=== PATIENT | male | born 1930 | race Caucasian/White ===

== ENCOUNTER 2016-09-21 17:26 | Inpatient (IN) | payer OTHER ==
[~2016-09-21] VITALS: Ht 165.1 cm; Wt 80.1 kg
[~2016-09-21 17:26] MED LIST: ADVIN25050 INH; ALFU10TA2 PO; FENO130C2 PO; FRS/40 PO; GLPSR/5 PO; LABETALOL HCL; PERCOCET; PROVASTATIN SODIUM; PYRIDIUM; TIOTCAP INH; [UNRECOGNIZED DRUG - OTHER]
[2016-09-21 22:00] VITALS: BP 124/74; PULSE 72; TEMP 37; O2SAT 94
[2016-09-21 22:36] VITALS: Ht 165.1 cm; Wt 80.1 kg
[2016-09-21] MEDS ORDERED: ACETAMINOPHEN 325 MG TAB PO PRN (23:30)
[2016-09-21] MEDS ORDERED: MAGNESIUM HYDROXIDE SUSP 30 ML UDC PO PRN (23:30)
[2016-09-21] MEDS ORDERED: ALUMINUM/MAGNESIUM/SIMETH (MAALOX MAX) 30 ML UDC PO PRN (23:30)
[2016-09-21] MEDS ORDERED: ONDANSETRON INJ 2 MG/ML 2 ML VIAL IV PRN (23:30)
[2016-09-21 23:40] VITALS: BP 140/78; PULSE 71; TEMP 36.6; O2SAT 94
[2016-09-21] MEDS ORDERED: POLYETHYLENE (MIRALAX) 17 GM PACK PO PRN (23:45)
[2016-09-22] VITALS (10 sets, daily range): BP systolic 136–161; BP diastolic 70–87; PULSE 68–82; TEMP 36.7–36.8; O2SAT 94–97
[2016-09-22] MEDS ORDERED: LEVO75TA PO (00:08)
[2016-09-22] MEDS ORDERED: METO-157 PO (00:10)
[2016-09-22] MEDS ORDERED: FRS/40 PO (00:10)
[2016-09-22] MEDS ORDERED: SPRIN/30 INH (00:11)
[2016-09-22] MEDS ORDERED: CARV3.122 PO (00:13)
[2016-09-22] MEDS ORDERED: IPRASOL4 INH (00:13)
[2016-09-22] MEDS ORDERED: POTA10CA28 PO (00:14)
[2016-09-22] MEDS ORDERED: SIMV20TA5 PO (00:15)
[2016-09-22] MEDS ORDERED: AMIO200T4 PO (00:15)
[2016-09-22] MEDS ORDERED: SYMIN INH (00:16)
[2016-09-22] MEDS ORDERED: ASPI81TA28 PO (00:17)
[2016-09-22] MEDS ORDERED: NTRGSL/4 SL (00:18)
[2016-09-22] MEDS ORDERED: DUTA0.5C PO (00:19)
[2016-09-22] MEDS ORDERED: ALFU1TAB2 PO (00:19)
[2016-09-22] MEDS ORDERED: PSYL0.524 PO (00:21)
[2016-09-22] MEDS ORDERED: PANT40TA PO (00:23)
--- NOTE | 2016-09-22 00:52 | History and Physical ---
History & Physical Date & Time of Service: Sep 22, 2016 at 00:24 Chief Complaint: Gross Hematuria Primary Care Physician: No Doctor, Assigned History of Present Illness Source: patient 86-year-old male with past medical history of type 2 diabetes which is diet controlled, hypertension, CAD, COPD, chronic combined systolic and diastolic heart failure, hyperlipidemia, BCC of face, hypothyroidism, CKD stage III, incontinence of urine and chronic urinary retention presented to [facility] as a direct admit from [facility] with complaints of gross hematuria. He complains of gross hematuria which started about 2 days ago associated with dysuria. Denies any chills but had a low-grade temp last night. Denies any nausea, vomiting, abdominal pain, back pain. Past Medical/Surgical History type 2 diabetes which is diet controlled, hypertension, CAD, COPD, chronic combined systolic and diastolic heart failure, hyperlipidemia, BCC of face, hypothyroidism, CKD stage III, incontinence of urine and chronic urinary retention Social History Smoking Status: Former Smoker Allergies Coded Allergies: No Known Allergies (Verified Allergy, Unknown, 03/27/07) Home Medications Scheduled Alfuzosin Hcl (Alfuzosin Hcl Er), 1 TAB PO DAILY Amiodarone Hcl (Cordarone), 1 TAB PO DAILY Aspirin (Aspirin Ec), 81 MG PO DAILY Budesonide/Formoterol Fumarate (Symbicort 160-4.5 Mcg/Act), 2 PUFF INH BID Carvedilol (Coreg), 1 TAB PO BID Dutasteride (Avodart), 1 CAP PO DAILY Furosemide (Lasix), 40 MG PO DAILY Ipratropium-Albuterol (Duoneb), 1 TREATMENT INH Q4H Levothyroxine Sodium (Synthroid), 1 TAB PO DAILY Metoclopramide (Reglan), 5 MG PO AC Nitroglycerin (Nitrostat), 1 TAB SL UD Pantoprazole (Protonix), 40 MG PO DAILY Potassium Chloride (Micro-K Ext Rel), 10 MEQ PO DAILY Simvastatin (Zocor), 1 TAB PO HS Tiotropium [place] (Spiriva Handihaler), 1 CAP INH DAILY Scheduled PRN Psyllium (Metamucil), 1 DOSE PO DAILY PRN for Constipation Review of Systems Constitutional: No chills, No fever Eyes: No worsening of vision ENT: No hearing loss Respiratory: No cough, No shortness of breath Cardiovascular: No chest pain Abdomen: No nausea, No pain, No vomiting Musculoskeletal: No joint pain Genitourinary - Male: + dysuria, + hematuria, + urinary frequency, + urinary incontinence, + urinary retention Neurologic: No memory loss Psychiatric: No depression symptoms Endocrine: No fatigue Hematologic / Lymphatic: No abnormal bleeding/bruising Physical Exam Vital Signs Date Time Temp Pulse Resp B/P Pulse Ox O2 Delivery O2 Flow Rate FiO2 09/21/16 23:40 36.6 71 16 140/78 94 Room Air 09/21/16 22:15 Room Air 09/21/16 22:00 37.0 72 16 124/74 94 Room Air General Appearance: WD/WN, no apparent distress Head: normocephalic Eyes: normal inspection ENT: normal ENT inspection, hearing grossly normal Neck: supple Respiratory/Chest: chest non-tender, no respiratory distress, + wheezing Cardiovascular: regular rate, rhythm, no edema Abdomen/GI: normal bowel sounds, non tender, soft Neurologic/Psych: alert, oriented x 3 Skin: normal color Diagnostics Diagnostic Radiology CT abdomen and pelvis without IV contrast PERFORMED AT [facility]: Findings emphysema is noted involving both lungs. Cholelithiasis is present. The liver, spleen, pancreas, and the right adrenal gland, are suboptimally evaluated on these unenhanced images, but demonstrated no acute pathology. There is a probable left adrenal adenoma. There is mild bilateral hydronephrosis and marked prominence of the renal pelvis bilaterally, worse on the right than left. There is no free air or lymph node enlargement. There is an infrarenal abdominal aortic aneurysm measuring 3.9 X3.3 centimeters. It is 5 cm in length. Prominent atherosclerotic changes are noted involving the abdominal aorta and branching vessels. Pelvis: There is no abnormal wall thickening or obstruction. There is no free fluid. Lymph nodes are not enlarged. The ureter is a severely dilated bilaterally. They extend to the bladder where there is marked thickening of the bladder wall. Haziness of the perivesical fat disease noted. A Lr catheter is identified within the urinary bladder. Skeleton: No acute fractures. No suspicious bony lesions. There are prominent degenerative changes of the lumbar spine. Impression: #1 mild bilateral hydronephrosis with severe bilateral hydroureter. The ureters are dilated to a markedly thickened bladder. There is haziness of perivesical fat. #2 small infrarenal abdominal aortic aneurysm #3: Cholelithiasis Impression Assessment and Plan Documented By: Myles Pineda 86-year-old male with past medical history of type 2 diabetes which is diet controlled, hypertension, CAD, COPD, chronic combined systolic and diastolic heart failure, hyperlipidemia, BCC of face, hypothyroidism, CKD stage III, incontinence of urine and chronic urinary retention presented to [facility] as a direct admit from [facility] with complaints of gross hematuria. Gross hematuria with underlying UTI - UA at outside hospital: Bloody urine with 3+ blood ,3+ protein ,positive nitrite, 3+ leuk esterase, more than 100 RBCs, 25-50 WBC, many bacteria - CT abdomen/pelvis #1 mild bilateral hydronephrosis with severe bilateral hydroureter. The ureters are dilated to a markedly thickened bladder. There is haziness of perivesical fat. #2 small infrarenal abdominal aortic aneurysm #3: Cholelithiasis - UA and urine culture ordered - Consult urology - IV Rocephin Coronary artery disease/CHF/hypertension- - hold aspirin considering hematuria - Continue amiodarone, Coreg, Zocor, Lasix, potassium chloride CKD stage III: - Creatinine from outside hospital at 1.5 - Monitor COPD: - Continue Spiriva, Symbicort, DuoNeb's Hypothyroidism: - Continue Synthroid Type 2 diabetes: diet controlled Chronic urinary retention: - continue alfuzosin, dutasteride: GERD: -Continue Protonix DVT prophylaxis: SCDs Avoid chemical anticoagulation considering gross hematuria Disposition: Admitted to [facility] Resident Physician Supervision Note: Pt seen/examined independently. I discussed the case with the resident and agree with the findings and plan as documented in the note. Any exceptions or clarifications are listed here: Transferred from [facility] due to hematuria and lack of urological services Pt did not have additional acute complaints O/E Pt was mostly asleep when I examined him S1,2 R CTAB NT, ND Urinary cath expresses dark, stevan hematuria P: Cath in place - intermit irrigation Trend Hb Consult Urology Level of Care Med/Surg Advanced Directives Existing Living Will: Yes Existing Power of Fur Weigher: Yes VTE Prophylaxis VTE Risk Assessment Done? Y/N: Yes Risk Level: Moderate Given or contraindicated: SCD's Resident Tracking Resident Involvement: Resident Care Provided Care Provided: Adult Hospital Medicine
[2016-09-22] MEDS ORDERED: NITROGLYCERIN 0.4 MG SL PER TAB CHARGE SL SCH (01:00)
[2016-09-22] MEDS: CEFTRIAXONE SOD INJ 1 GM in DEXTROSE 5% ADD-VANTAGE 50ML 50 ML IV SCH (01:08)
[2016-09-22] MEDS: ALBUT/IPRATROP 3MG/0.5MG NEB 3 ML VIAL INH SCH ×6 (03:26→23:30)
[2016-09-22 04:45] LABS: URINE APPEARANCE CLOUDY (CLEAR); URINE BILIRUBIN NEG (NEG); URINE EPITHELIAL CELL AUTO >30 /lpf (0-5); URINE NITRITE NEG (NEG); URINE SPECIFIC GRAVITY 1.019 (1.000-1.030); UROBILINOGEN NEG (NEG)
[2016-09-22 04:46] LABS: MANUAL MICROSCOPIC REQUIRED? NO; REVIEW REQ? NO
[2016-09-22 04:47] LABS: URINE COLOR RED
[2016-09-22] MEDS: LEVOTHYROXINE 75 MCG TAB PO SCH (05:48)
[2016-09-22 07:00] LABS: BASO % 0.1 %; BASO ABS # 0.01 K/uL (0-0.2); COMPLETE YES; EOS % 0.5 %; HEMATOCRIT 42.2 % (42-52); IG% 0.3 %; LYMPH % 7.7 %; MEAN CELL VOLUME 97.2 fL (80-100); MEAN CORPUSCULAR HEMOGLOBIN 32.9 pg (25-34); MEAN CORPUSCULAR HGB CONC 33.9 g/dl (32-36); MEAN PLATELET VOLUME 10.7 fL (7.4-10.4); MONO % 7.4 %; PLATELET COUNT 135 K/uL (130-400); RED BLOOD COUNT 4.34 M/uL (4.7-6.1); WHITE BLOOD COUNT 7.82 K/uL (4.8-10.8)
[2016-09-22] MEDS: AVODART~ORDER AWAITING ACTION SCH ×2 (07:13→16:00)
[2016-09-22 07:14] LABS: INR 1.1 (0.9-1.1); PARTIAL THROMBOPLASTIN RATIO 1.2; PROTHROMBIN TIME (PATIENT) 11.4 SECONDS (9.0-12.0)
[2016-09-22 07:41] LABS: ALB/GLOB RATIO 0.8 (0.9-2); BUN/CREATININE RATIO 21.7 (10-20); CALCIUM 8.2 mg/dl (8.5-10.1); CREATININE 1.2 mg/dl (0.60-1.40)
[2016-09-22] MEDS: PANTOprazole SOD 40 MG TAB PO SCH (07:56)
[2016-09-22] MEDS: POTASSIUM CHLORIDE 10 MEQ TABCR PO SCH (07:57)
[2016-09-22] MEDS: CARVEDILOL 3.125 MG TAB PO SCH ×2 (07:57→20:52)
[2016-09-22] MEDS: METOCLOPRAMIDE HCL 10 MG TAB PO SCH ×3 (07:57→17:10)
[2016-09-22] MEDS: AMIODARONE 200 MG TAB PO SCH (07:57)
[2016-09-22] MEDS: FUROSEMIDE 40 MG TAB PO SCH (07:57)
[2016-09-22] MEDS: ALFUZosin TAB 10 MG TAB PO SCH (07:58)
[2016-09-22] MEDS: TIOTROPIUM BROMIDE 5 PUFF/90 MCG INH INH SCH (07:58)
[2016-09-22] MEDS: FLUTICASONE/SALMETEROL 250/50 (ADVAIR) 14 PUFF/1 INHALER INH SCH ×2 (07:58→20:53)
[2016-09-22] MEDS ORDERED: OPTIRAY 320 IV PRN (08:45)
--- NOTE | 2016-09-22 09:58 | Urology Consultation ---
History General Date of Service: Sep 22, 2016. Primary Care Physician: No Doctor, Assigned Pt seen a urologist before?: Yes History of Present Illness 86 year old male admitted with gross hematuria. He is known to our service for BPH and incomplete bladder emptying. Reviewed his [employer] chart- he was last seen in our office in Mar 2016- alpha mariya and 5ARI were controlling his bothersome LUTS. He had a normal cysto 1 year ago in September 2015. No evidence of prostate or bladder neck obstruction, no urethral strictures, no bladder tumors. Renal u/s in early 2015 showed mild hydro. He has a remote hx of bladder cancer in 2006- cysto with Dr. Brooks. Currently confused. Unsure how long he has had hematuria. Lr catheter draining merlot colored urine- no clots. Had nursing irrigate bladder- no clot return. Urine culture is pending. Pt on IV Rocephin. Had CT abd[facility]pelvis at [facility]- no images available- per report- mild bilateral hydronephrosis with severe bilateral hydroureter. The ureters are dilated to a markedly thickened bladder White count and creatinine are normal. Imaging Imaging: CT (at [facility]) Laboratory Last 24 Hours Test 09/22/16 04:21 09/22/16 06:45 Urine Color RED Urine Appearance CLOUDY Urine pH 7.0 Urine Specific [place] 1.019 Urine Protein 4+ Urine Glucose (UA) NEG Urine Ketones NEG Urine Occult Blood 3+ Urine Nitrite NEG Urine Bilirubin NEG Urine Urobilinogen NEG Urine Leukocyte Esterase MODERATE Urine WBC (Auto) >30 /hpf Urine RBC (Auto) >30 /hpf Urine Hyaline Casts (Auto) 5-10 /lpf Urine Epithelial Cells (Auto) >30 /lpf Urine Bacteria (Auto) NEG White Blood Count 7.82 K/uL Red Blood Count 4.34 M/uL Hemoglobin 14.3 g/dL Hematocrit 42.2 % Mean Corpuscular Volume 97.2 fL Mean Corpuscular Hemoglobin 32.9 pg Mean Corpuscular Hemoglobin Concent 33.9 g/dl Platelet Count 135 K/uL Mean Platelet Volume 10.7 fL Neutrophils (%) (Auto) 84.0 % Lymphocytes (%) (Auto) 7.7 % Monocytes (%) (Auto) 7.4 % Eosinophils (%) (Auto) 0.5 % Basophils (%) (Auto) 0.1 % Neutrophils # (Auto) 6.57 K/uL Lymphocytes # (Auto) 0.60 K/uL Monocytes # (Auto) 0.58 K/uL Eosinophils # (Auto) 0.04 K/uL Basophils # (Auto) 0.01 K/uL RDW Standard Deviation 48.4 fL RDW Coefficient of Variation 13.5 % Immature Granulocyte % (Auto) 0.3 % Immature Granulocyte # (Auto) 0.02 K/uL Prothrombin Time 11.4 SECONDS Prothromb Time International Ratio 1.1 Activated Partial Thromboplast Time 29.9 SECONDS Partial Thromboplastin Ratio 1.2 Sodium Level 143 mmol/L Potassium Level 4.0 mmol/L Chloride Level 109 mmol/L Carbon Dioxide Level 25 mmol/L Anion Gap 9.0 mmol/L Blood Urea Nitrogen 26 mg/dl Creatinine 1.20 mg/dl Est Creatinine Clear Calc Drug Dose 43.1 ml/min Estimated GFR () 63.1 Estimated GFR (Non- 54.4 BUN/Creatinine Ratio 21.7 Random Glucose 120 mg/dl Calcium Level 8.2 mg/dl Total Bilirubin 0.4 mg/dl Aspartate Amino Transf (AST/SGOT) 16 U/L Alanine Aminotransferase (ALT/SGPT) 13 U/L Alkaline Phosphatase 64 U/L Total Protein 5.5 gm/dl Albumin 2.5 gm/dl Globulin 3.0 gm/dl Albumin/Globulin Ratio 0.8 Current Inpatient Medications Medications (Trade) Dose Ordered Sig/Daniel Route Start Time Stop Time Status Last Admin Dose Admin Acetaminophen (Tylenol Tab) 650 mg Q4H PRN PO 09/21/16 23:30 10/21/16 23:29 Al Hydrox/Mg Hydrox/Simethicone (Maalox Max Susp) 15 ml Q4H PRN PO 09/21/16 23:30 10/21/16 23:29 Magnesium Hydroxide (Milk Of Magnesia Susp) 30 ml Q6H PRN PO 09/21/16 23:30 10/21/16 23:29 Polyethylene (Miralax Powder Packet) 17 gm DAILY PRN PO 09/21/16 23:45 10/21/16 23:44 Ondansetron HCl 4 mg 4 mg Q6H PRN IV 09/21/16 23:30 10/21/16 23:29 Ceftriaxone Sodium/Dextrose (Rocephin Inj/ Dextrose Add-[place] 50ML) 50 ml @ 100 mls/hr Q24H IV 09/22/16 01:00 10/02/16 00:59 09/22/16 01:08 100 MLS/HR Alfuzosin HCl (Uroxatral Tab) 10 mg DAILY PO 09/22/16 09:00 10/22/16 08:59 09/22/16 07:58 10 MG Amiodarone HCl (Cordarone Tab) 200 mg DAILY PO 09/22/16 09:00 10/22/16 08:59 09/22/16 07:57 200 MG Carvedilol (Coreg Tab) 3.125 mg BID PO 09/22/16 09:00 10/22/16 08:59 09/22/16 07:57 3.125 MG Salmeterol Xinafoate/ Fluticasone (Advair Diskus 250/50 Inh) 1 puff BID INH 09/22/16 09:00 10/22/16 08:59 09/22/16 07:58 1 PUFF Furosemide (Lasix Tab) 40 mg DAILY PO 09/22/16 09:00 10/22/16 08:59 09/22/16 07:57 40 MG Albuterol/ Ipratropium (Duoneb) 2 ml Q4R INH 09/22/16 04:00 10/22/16 03:59 09/22/16 06:54 2 ML Levothyroxine Sodium (Synthroid Tab) 75 mcg DAILYBB PO 09/22/16 06:00 10/22/16 05:59 09/22/16 05:48 75 MCG Metoclopramide HCl (Reglan Tab) 5 mg AC PO 09/22/16 08:00 10/22/16 07:59 09/22/16 07:57 5 MG Nitroglycerin (Nitrostat Tab) 0.4 mg UD SL 09/22/16 01:00 10/22/16 00:59 Pantoprazole Sodium (Protonix Tab) 40 mg DAILY PO 09/22/16 09:00 10/22/16 08:59 09/22/16 07:56 40 MG Potassium Chloride (Klor-Con M10) 10 meq DAILY PO 09/22/16 09:00 10/22/16 08:59 09/22/16 07:57 10 MEQ Simvastatin (Zocor Tab) 20 mg HS PO 09/22/16 21:00 10/22/16 20:59 Tiotropium [place] (Spiriva Handihaler Inhaler) 1 puff DAILY INH 09/22/16 09:00 10/22/16 08:59 09/22/16 07:58 1 PUFF Miscellaneous Information (Order Awaiting Action) 1 ea QS N/A 09/22/16 08:00 10/22/16 07:59 Ioversol (Optiray 320) 100 ml UD PRN IV 09/22/16 08:45 09/26/16 08:44 Labs were reviewed and are within normal limits unless listed below. Labs are available in the chart and at [facility] Past History asthma, BPH, cancer - skin (melanoma), congestive heart failure, hypertension Social History Hx Tobacco Use In Past Year?: No (quit approx 15 yrs ago) Smoking: no current use Alcohol: no current use Occupation status: retired Allergies Coded Allergies: No Known Allergies (Verified Allergy, Unknown, 03/27/07) Medications Home Medications: Home Meds and Scripts Medications Dose Route/Sig Max Daily Dose Days Date Category Protonix (Pantoprazole Sodium) 40 Mg Tab 40 Mg PO DAILY 09/22/16 Reported Metamucil (Psyllium) 0.52 Gm Cap 1 Dose PO DAILY PRN 09/22/16 Reported Alfuzosin Hcl Er (Alfuzosin Hcl) 10 Mg Tab 1 Tab PO DAILY 30 09/22/16 Reported Avodart (Dutasteride) 0.5 Mg Cap 1 Cap PO DAILY 30 09/22/16 Reported Nitrostat (Nitroglycerin) 0.4 Mg Tab 1 Tab SL UD 09/22/16 Reported Aspirin Ec (Aspirin) 81 Mg Tab 81 Mg PO DAILY 09/22/16 Reported Symbicort 160-4.5 Mcg/Act (Budesonide/Formoterol Fumarate) 60 Puffs/Inhaler Aero 2 Puff INH BID 09/22/16 Reported Cordarone (Amiodarone Hcl) 200 Mg Tab 1 Tab PO DAILY 90 09/22/16 Reported Zocor (Simvastatin) 20 Mg Tab 1 Tab PO HS 30 09/22/16 Reported Micro-K Ext Rel (Potassium Chloride) 10 Meq Capcr 10 Meq PO DAILY 09/22/16 Reported Coreg (Carvedilol) 3.125 Mg Tab 1 Tab PO BID 30 09/22/16 Reported Duoneb (Ipratropium-Albuterol) 3 Ml Nebu 1 Treatment INH Q4H 09/22/16 Reported Spiriva Handihaler (Tiotropium [place]) 30 Puff/540 Mcg Aerp 1 Cap INH DAILY 30 09/22/16 Reported Lasix (Furosemide) 40 Mg Tab 40 Mg PO DAILY 09/22/16 Reported Reglan (Metoclopramide HCl) 10 Mg Tab 5 Mg PO AC 09/22/16 Reported Synthroid (Levothyroxine Sodium) 75 Mcg Tab 1 Tab PO DAILY 30 09/22/16 Reported Inpatient Medications: Current Inpatient Medications Medications (Trade) Dose Ordered Sig/Daniel Route Start Time Stop Time Status Last Admin Dose Admin Acetaminophen (Tylenol Tab) 650 mg Q4H PRN PO 09/21/16 23:30 10/21/16 23:29 Al Hydrox/Mg Hydrox/Simethicone (Maalox Max Susp) 15 ml Q4H PRN PO 09/21/16 23:30 10/21/16 23:29 Magnesium Hydroxide (Milk Of Magnesia Susp) 30 ml Q6H PRN PO 09/21/16 23:30 10/21/16 23:29 Polyethylene (Miralax Powder Packet) 17 gm DAILY PRN PO 09/21/16 23:45 10/21/16 23:44 Ondansetron HCl 4 mg 4 mg Q6H PRN IV 09/21/16 23:30 10/21/16 23:29 Ceftriaxone Sodium/Dextrose (Rocephin Inj/ Dextrose Add-[place] 50ML) 50 ml @ 100 mls/hr Q24H IV 09/22/16 01:00 10/02/16 00:59 09/22/16 01:08 100 MLS/HR Alfuzosin HCl (Uroxatral Tab) 10 mg DAILY PO 09/22/16 09:00 10/22/16 08:59 09/22/16 07:58 10 MG Amiodarone HCl (Cordarone Tab) 200 mg DAILY PO 09/22/16 09:00 10/22/16 08:59 09/22/16 07:57 200 MG Carvedilol (Coreg Tab) 3.125 mg BID PO 09/22/16 09:00 10/22/16 08:59 09/22/16 07:57 3.125 MG Salmeterol Xinafoate/ Fluticasone (Advair Diskus 250/50 Inh) 1 puff BID INH 09/22/16 09:00 10/22/16 08:59 09/22/16 07:58 1 PUFF Furosemide (Lasix Tab) 40 mg DAILY PO 09/22/16 09:00 10/22/16 08:59 09/22/16 07:57 40 MG Albuterol/ Ipratropium (Duoneb) 2 ml Q4R INH 09/22/16 04:00 10/22/16 03:59 09/22/16 06:54 2 ML Levothyroxine Sodium (Synthroid Tab) 75 mcg DAILYBB PO 09/22/16 06:00 10/22/16 05:59 09/22/16 05:48 75 MCG Metoclopramide HCl (Reglan Tab) 5 mg AC PO 09/22/16 08:00 10/22/16 07:59 09/22/16 07:57 5 MG Nitroglycerin (Nitrostat Tab) 0.4 mg UD SL 09/22/16 01:00 10/22/16 00:59 Pantoprazole Sodium (Protonix Tab) 40 mg DAILY PO 09/22/16 09:00 10/22/16 08:59 09/22/16 07:56 40 MG Potassium Chloride (Klor-Con M10) 10 meq DAILY PO 09/22/16 09:00 10/22/16 08:59 09/22/16 07:57 10 MEQ Simvastatin (Zocor Tab) 20 mg HS PO 09/22/16 21:00 10/22/16 20:59 Tiotropium [place] (Spiriva Handihaler Inhaler) 1 puff DAILY INH 09/22/16 09:00 10/22/16 08:59 09/22/16 07:58 1 PUFF Miscellaneous Information (Order Awaiting Action) 1 ea QS N/A 09/22/16 08:00 10/22/16 07:59 Ioversol (Optiray 320) 100 ml UD PRN IV 09/22/16 08:45 09/26/16 08:44 Review of Systems Review of Systems Constitutional: No fever Additional Comments: pt confused unable to determine ROS Physical Exam Vital Signs: Vital Signs Past 12 Hours Date Time Temp Pulse Resp B/P Pulse Ox O2 Delivery O2 Flow Rate FiO2 09/22/16 07:25 36.7 69 15 146/70 94 Room Air 09/22/16 07:16 Room Air 09/22/16 06:54 75 16 94 Room Air 09/22/16 03:27 72 16 94 Room Air 09/22/16 00:10 Room Air 09/21/16 23:40 36.6 71 16 140/78 94 Room Air 09/21/16 22:15 Room Air 09/21/16 22:00 37.0 72 16 124/74 94 Room Air Physical Exam: General Appearance: WD/WN, no apparent distress ENT: hearing grossly normal Neck: no JVD Respiratory/Chest: no respiratory distress, no accessory muscle use Neurologic/Psychiatric: alert, + disoriented Skin: warm/dry Assessment & Plan Assessment & Plan Imaging: CT Gross Hematuria Lr catheter draining merlot colored urine. Note hydroureter on CT report from [facility]. Discussed case with Dr. Martin- will send urine for cytology. No need for stent at this time for hydro.hx of hydro Creatinine is normal. Afebrile VSS. Continue IV antibx. Urine culture pending. Hx of bladder cancer. Cysto 1 year ago was normal. Can repeat as outpt Will check PSA as well. Thanks for the consult. Will continue to follow along with primary service. Followup kub shows dilatation of r greater than left ureter w/o obstruction.Wbc and creatinine is normal. Above tests pending but suspect chronic infection which was first noted adecade ago as cause of bladder thickening but distant history of low grade tcc requies pt be recystoscoped after infection treated
--- NOTE | 2016-09-22 10:44 | DIAGNOSTIC IMAGING REPORT ---
ABDOMEN AND PELVIS CT WITH AND WITHOUT IV CONTRAST, UROGRAM PROTOCOL CT DOSE: HISTORY: Gross hematuria. TECHNIQUE: Multiaxial CT images of the abdomen and pelvis were performed both before and after the use of intravenous contrast to evaluate the urinary system. Maximal intensity projection images were performed at the workstation by the radiologist. COMPARISON STUDY: Outside hospital abdomen and pelvis CT 09/21/2016. FINDINGS: Is a punctate stone within the upper pole the right kidney. No left renal calculi. Left-sided hydronephrosis has resolved. There is persistent mild dilatation and periureteral fat stranding within the distal left ureter. Mild right hydronephrosis has also improved. There is moderate dilatation of the entire right ureter which is similar to the prior study. There is associated right periureteral fat stranding. No ureteral or bladder calculi. There is diffuse bladder wall thickening with surrounding stranding. The bladder is completely decompressed by a Lr catheter. This results in near nondiagnostic evaluation for bladder mass. A few subcentimeter bilateral renal hypodense lesions are too small to characterize. No suspicious filling defects seen within the opacified bilateral renal collecting systems. Diffuse urothelial thickening seen within the bilateral renal pelvis series and bilateral ureters. No contrast was identified within the right ureter likely due to the hydronephrosis. Layering filling defect within the left renal pelvis may represent a small amount of blood products. This is best seen on image 152. This measures 5 mm and has a non-masslike appearance. The right ureter is distended to the level of the ureterovesical junction. The distended distal left ureter is also seen to the level of the ureterovesical junction The lung bases are clear. No hepatic or splenic masses. The left 11 mm left gland nodule and a 9 mm right adrenal gland nodule. These are indeterminate. Small stone within the gallbladder. A 3.9 cm infrarenal abdominal aortic aneurysm. No retroperitoneal lymphadenopathy. No bowel wall thickening or obstruction. No suspicious lytic or blastic osseous lesions. IMPRESSION: 1. Punctate stone within the right kidney. No ureteral stones identified. 2. Improvement in the mild right hydronephrosis. There is moderate dilatation of the entire right ureter which is similar to the prior study. The left-sided hydronephrosis and dilated proximal left ureter have resolved in the interval. However, there is persistent mild dilatation of the distal left ureter. This favors chronic outlet obstruction. 3. Severe bladder wall thickening with surrounding edema. This favors a cystitis. Recommend correlation with urinalysis. The completely decompressed bladder by the Lr catheter results in nondiagnostic evaluation for bladder mass. 4. Diffuse bilateral urothelial thickening with bilateral periureteral edema. This favors a chronic infectious process. 5. A 5 mm layering filling defect within the left renal pelvis has a non-masslike appearance and favors residual blood products given the patient's history of hematuria. However, correlation with urine cytology and follow-up CT are suggested to exclude the likely possibility of a urothelial lesion. 6. Additional findings as described above. Electronically signed by: Hong Zepeda M.D. 09/22/2016 10:42 AM Dictated Date/Time: 09/22/2016 10:24 AM
[2016-09-22 11:35] LABS: PROSTATE SPECIFIC ANTIGEN 0.143 ng/ml (0.000-4.000)
--- NOTE | 2016-09-22 12:09 | Hospitalist Progress Note ---
Hospitalist Progress Note Date of Service Sep 22, 2016. Subjective Pt evaluation today including: conversation w/ patient, physical exam, chart review, lab review, review of studies, review of inpatient medication list Voiding: ch catheter in place (draining gross hematuria ) Patient states he is feeling well. Gross hematuria started on 09/21 per patient. He is eating and drinking OK. Patient denies any fever, chills, sweats, lightheadedness, dizziness, vision changes, CP, palpitations, edema, SOB, wheezing, cough, abdominal pain, nausea, vomiting, diarrhea, urinary symptoms, melena, numbness/tingling, weakness, muscle/joint pain, anxiety/depression, or new skin discoloration/changes. Medications Current Inpatient Medications Medications (Trade) Dose Ordered Sig/Daniel Route Start Time Stop Time Status Last Admin Dose Admin Acetaminophen (Tylenol Tab) 650 mg Q4H PRN PO 09/21/16 23:30 10/21/16 23:29 Al Hydrox/Mg Hydrox/Simethicone (Maalox Max Susp) 15 ml Q4H PRN PO 09/21/16 23:30 10/21/16 23:29 Magnesium Hydroxide (Milk Of Magnesia Susp) 30 ml Q6H PRN PO 09/21/16 23:30 10/21/16 23:29 Polyethylene (Miralax Powder Packet) 17 gm DAILY PRN PO 09/21/16 23:45 10/21/16 23:44 Ondansetron HCl 4 mg 4 mg Q6H PRN IV 09/21/16 23:30 10/21/16 23:29 Ceftriaxone Sodium/Dextrose (Rocephin Inj/ Dextrose Add-[place] 50ML) 50 ml @ 100 mls/hr Q24H IV 09/22/16 01:00 10/02/16 00:59 09/22/16 01:08 100 MLS/HR Alfuzosin HCl (Uroxatral Tab) 10 mg DAILY PO 09/22/16 09:00 10/22/16 08:59 09/22/16 07:58 10 MG Amiodarone HCl (Cordarone Tab) 200 mg DAILY PO 09/22/16 09:00 10/22/16 08:59 09/22/16 07:57 200 MG Carvedilol (Coreg Tab) 3.125 mg BID PO 09/22/16 09:00 10/22/16 08:59 09/22/16 07:57 3.125 MG Salmeterol Xinafoate/ Fluticasone (Advair Diskus 250/50 Inh) 1 puff BID INH 09/22/16 09:00 10/22/16 08:59 09/22/16 07:58 1 PUFF Furosemide (Lasix Tab) 40 mg DAILY PO 09/22/16 09:00 10/22/16 08:59 09/22/16 07:57 40 MG Albuterol/ Ipratropium (Duoneb) 2 ml Q4R INH 09/22/16 04:00 10/22/16 03:59 09/22/16 11:28 2 ML Levothyroxine Sodium (Synthroid Tab) 75 mcg DAILYBB PO 09/22/16 06:00 10/22/16 05:59 09/22/16 05:48 75 MCG Metoclopramide HCl (Reglan Tab) 5 mg AC PO 09/22/16 08:00 10/22/16 07:59 09/22/16 07:57 5 MG Nitroglycerin (Nitrostat Tab) 0.4 mg UD SL 09/22/16 01:00 10/22/16 00:59 Pantoprazole Sodium (Protonix Tab) 40 mg DAILY PO 09/22/16 09:00 10/22/16 08:59 09/22/16 07:56 40 MG Potassium Chloride (Klor-Con M10) 10 meq DAILY PO 09/22/16 09:00 10/22/16 08:59 09/22/16 07:57 10 MEQ Simvastatin (Zocor Tab) 20 mg HS PO 09/22/16 21:00 10/22/16 20:59 Tiotropium [place] (Spiriva Handihaler Inhaler) 1 puff DAILY INH 09/22/16 09:00 10/22/16 08:59 09/22/16 07:58 1 PUFF Miscellaneous Information (Order Awaiting Action) 1 ea QS N/A 09/22/16 08:00 10/22/16 07:59 Ioversol (Optiray 320) 100 ml UD PRN IV 09/22/16 08:45 09/26/16 08:44 Objective Vital Signs Date Time Temp Pulse Resp B/P Pulse Ox O2 Delivery O2 Flow Rate FiO2 09/22/16 11:28 71 16 97 Room Air 09/22/16 07:25 36.7 69 15 146/70 94 Room Air 09/22/16 07:16 Room Air 09/22/16 06:54 75 16 94 Room Air 09/22/16 03:27 72 16 94 Room Air 09/22/16 00:10 Room Air 09/21/16 23:40 36.6 71 16 140/78 94 Room Air 09/21/16 22:15 Room Air 09/21/16 22:00 37.0 72 16 124/74 94 Room Air Physical Exam General Appearance: no apparent distress, + pertinent finding (BBC noted to lateral left cheeck ) Eyes: PERRL, + pertinent finding (extropion to bilateral eyes noted ) ENT: hearing grossly normal Neck: supple Respiratory/Chest: lungs clear, no respiratory distress, no accessory muscle use Cardiovascular: regular rate, rhythm Abdomen: normal bowel sounds, non tender, soft Extremities: no pedal edema, no calf tenderness Neurologic/Psychiatric: alert, normal mood/affect, oriented x 3 Skin: warm/dry, no rash, + pertinent finding (extensive bruising noted to bilateral upper extremities; chronic stasis dermatitis changes noted to bilateral lower extremities ) Laboratory Results Last 24 Hours Test 09/22/16 04:21 09/22/16 06:45 Urine Color RED Urine Appearance CLOUDY Urine pH 7.0 Urine Specific [place] 1.019 Urine Protein 4+ Urine Glucose (UA) NEG Urine Ketones NEG Urine Occult Blood 3+ Urine Nitrite NEG Urine Bilirubin NEG Urine Urobilinogen NEG Urine Leukocyte Esterase MODERATE Urine WBC (Auto) >30 /hpf Urine RBC (Auto) >30 /hpf Urine Hyaline Casts (Auto) 5-10 /lpf Urine Epithelial Cells (Auto) >30 /lpf Urine Bacteria (Auto) NEG White Blood Count 7.82 K/uL Red Blood Count 4.34 M/uL Hemoglobin 14.3 g/dL Hematocrit 42.2 % Mean Corpuscular Volume 97.2 fL Mean Corpuscular Hemoglobin 32.9 pg Mean Corpuscular Hemoglobin Concent 33.9 g/dl Platelet Count 135 K/uL Mean Platelet Volume 10.7 fL Neutrophils (%) (Auto) 84.0 % Lymphocytes (%) (Auto) 7.7 % Monocytes (%) (Auto) 7.4 % Eosinophils (%) (Auto) 0.5 % Basophils (%) (Auto) 0.1 % Neutrophils # (Auto) 6.57 K/uL Lymphocytes # (Auto) 0.60 K/uL Monocytes # (Auto) 0.58 K/uL Eosinophils # (Auto) 0.04 K/uL Basophils # (Auto) 0.01 K/uL RDW Standard Deviation 48.4 fL RDW Coefficient of Variation 13.5 % Immature Granulocyte % (Auto) 0.3 % Immature Granulocyte # (Auto) 0.02 K/uL Prothrombin Time 11.4 SECONDS Prothromb Time International Ratio 1.1 Activated Partial Thromboplast Time 29.9 SECONDS Partial Thromboplastin Ratio 1.2 Sodium Level 143 mmol/L Potassium Level 4.0 mmol/L Chloride Level 109 mmol/L Carbon Dioxide Level 25 mmol/L Anion Gap 9.0 mmol/L Blood Urea Nitrogen 26 mg/dl Creatinine 1.20 mg/dl Est Creatinine Clear Calc Drug Dose 43.1 ml/min Estimated GFR () 63.1 Estimated GFR (Non- 54.4 BUN/Creatinine Ratio 21.7 Random Glucose 120 mg/dl Calcium Level 8.2 mg/dl Total Bilirubin 0.4 mg/dl Aspartate Amino Transf (AST/SGOT) 16 U/L Alanine Aminotransferase (ALT/SGPT) 13 U/L Alkaline Phosphatase 64 U/L Total Protein 5.5 gm/dl Albumin 2.5 gm/dl Globulin 3.0 gm/dl Albumin/Globulin Ratio 0.8 Prostate Specific Antigen 0.143 ng/ml Assessment and Plan 86-year-old male with past medical history of type 2 diabetes which is diet controlled, hypertension, CAD, COPD, chronic combined systolic and diastolic heart failure, hyperlipidemia, BCC of face, hypothyroidism, CKD stage III, incontinence of urine and chronic urinary retention presented to [facility] as a direct admit from [facility] with complaints of gross hematuria. Gross hematuria with underlying UTI: - Admit to med/surg - Abdominal/pelvic CT reviewed - UA dirty, UCx pending - Consult urology, appreciate recommendations -- Urine cytology -- No need for stent at present -- Hx of bladder cancer- Cysto 1 year ago was normal. Can repeat as outpt -- PSA- 0.143 - IV Rocephin (started on 09/22) - Follow CBC CAD/Combined diastolic/systolic CHF/HTN/Hyperlipidemia- - Hold ASA considering hematuria - Continue Amiodarone, Coreg, Zocor, Lasix, Potassium chloride CKD stage III- STABLE: Follow PRP COPD: Continue Spiriva, Symbicort, DuoNeb's Hypothyroidism: Continue Synthroid T2DM: Diet controlled Chronic urinary retention: Continue Alfuzosin, Dutasteride GERD: Continue Protonix DVT prophylaxis: SCDs, avoid chemical anticoagulation considering gross hematuria Disposition: From home, lives w/ niece. PT/OT evaluations
--- NOTE | 2016-09-22 12:53 | DIAGNOSTIC IMAGING REPORT ---
KUB CLINICAL HISTORY: Hydronephrosis. Renal insufficiency. COMPARISON STUDY: CT of the abdomen and pelvis September 21, 2016 and September 22, 2016. FINDINGS: The right nephrogram is slightly delayed. Contrast within the collecting systems and ureters is noted from recent CT. There is persistent moderate right hydroureter and mild right hydronephrosis. There is mild dilatation of the distal left ureter which is unchanged. There is no left hydronephrosis. Sensitivity for calculus diminished given contrast within the collecting systems. There is contrast within the bladder as well as a Lr balloon. IMPRESSION: 1. Persistent moderate right hydroureter and mild right hydronephrosis with a mildly delayed right nephrogram. 2. No significant change in moderate dilatation of the distal left ureter. Electronically signed by: Dae Pacheco M.D. 09/22/2016 12:51 PM Dictated Date/Time: 09/22/2016 12:47 PM
[2016-09-22] MEDS: SIMVASTATIN 20 MG TAB PO SCH (20:52)
[2016-09-23] VITALS (9 sets, daily range): BP systolic 131–199; BP diastolic 64–87; PULSE 70–78; TEMP 36.3–36.8; O2SAT 94–97
[2016-09-23] MEDS: CEFTRIAXONE SOD INJ 1 GM in DEXTROSE 5% ADD-VANTAGE 50ML 50 ML IV SCH (00:37)
[2016-09-23] MEDS: AVODART~ORDER AWAITING ACTION SCH ×3 (00:37→16:00)
[2016-09-23] MEDS: ALBUT/IPRATROP 3MG/0.5MG NEB 3 ML VIAL INH SCH ×6 (03:58→23:46)
[2016-09-23] MEDS: LEVOTHYROXINE 75 MCG TAB PO SCH (06:00)
[2016-09-23] MEDS: METOCLOPRAMIDE HCL 10 MG TAB PO SCH ×3 (08:00→17:00)
[2016-09-23] MEDS: FLUTICASONE/SALMETEROL 250/50 (ADVAIR) 14 PUFF/1 INHALER INH SCH ×2 (08:28→22:04)
[2016-09-23] MEDS: AMIODARONE 200 MG TAB PO SCH ×2 (08:28→12:13)
[2016-09-23] MEDS: TIOTROPIUM BROMIDE 5 PUFF/90 MCG INH INH SCH (08:28)
[2016-09-23] MEDS: CARVEDILOL 3.125 MG TAB PO SCH ×3 (08:29→22:05)
[2016-09-23] MEDS: FUROSEMIDE 40 MG TAB PO SCH ×2 (08:29→12:12)
[2016-09-23] MEDS: PANTOprazole SOD 40 MG TAB PO SCH (08:29)
[2016-09-23] MEDS: ALFUZosin TAB 10 MG TAB PO SCH ×2 (08:29→12:12)
[2016-09-23] MEDS: POTASSIUM CHLORIDE 10 MEQ TABCR PO SCH (08:29)
[2016-09-23] MEDS ORDERED: NURSING VERBAL MED ORDER ONE ×2 (08:30→12:15)
[2016-09-23] MEDS ORDERED: HydrALAZINE HCL 20 MG/ML VIAL IV. ONE (08:45)
[2016-09-23] MEDS ORDERED: HydrALAZINE HCL 20 MG/ML VIAL IV. PRN (11:45)
--- NOTE | 2016-09-23 12:19 | Progress Note ---
Subjective Date of Service: Sep 23, 2016. Subjective Pt evaluation today including: conversation w/ patient, conversation w/ family pt confused urine light pink vs burgundy yesterday Objective Vital Signs Date Time Temp Pulse Resp B/P Pulse Ox O2 Delivery O2 Flow Rate FiO2 09/23/16 11:52 159/87 09/23/16 11:19 76 18 94 Room Air 09/23/16 07:30 Room Air 09/23/16 07:15 36.7 78 20 199/77 97 Room Air 09/23/16 00:30 Room Air 09/22/16 23:30 82 18 95 Room Air 09/22/16 22:53 36.8 68 14 161/73 94 Room Air 09/22/16 20:52 79 144/83 09/22/16 19:47 82 16 95 Room Air 09/22/16 15:55 78 16 95 Room Air 09/22/16 15:30 Room Air 09/22/16 15:03 36.7 79 18 136/87 95 Room Air Assessment and Plan continueantibiotics will d/c ch in next day or two as pt confused he will need cysto as outpt prelininary urine ng but believe pt chronically infected
[2016-09-23] MEDS: SODIUM CHLORIDE 0.9% 1000ML 1,000 ML IV SCH (12:34)
--- NOTE | 2016-09-23 13:59 | Progress Note ---
Subjective Date of Service: Sep 23, 2016. Subjective Pt evaluation today including: conversation w/ patient, conversation w/ family , physical exam, chart review, lab review, review of studies, conversation w/ e business consultant, review of inpatient medication list Nurse report patient was confused and combative, after talking to family family report to is not unusual for him when he is in the hospital, However patient refused all by mouth medications , blood pressure was accelerated he required hydrolyzing When I interview with him he was sleepy but awake able, he reported feeling fine , and agreed to take pills Review of Systems Constitutional: + fatigue, + problem reported (not able to obtained because patient mild confused), + weakness, No chills, No fever, No sweats, No weight loss Eyes: No diplopia, No discharge, No eye pain, No redness, No worsening of vision ENT: No dental problems, No hearing loss, No nasal symptoms, No sore throat, No tinnitus, No trouble swallowing, No unusual epistaxis Respiratory: No cough, No dyspnea at rest, No dyspnea on exertion, No hemoptysis, No shortness of breath, No sputum, No wheezing Cardiac: No PND, No chest pain, No claudication, No edema, No orthopnea, No palpitations Abdomen: + problem reported (still hematuria Ch in place with red urine), No constipation, No diarrhea, No nausea, No pain, No vomiting Musculoskeletal: No calf pain, No joint pain, No muscle pain, No swelling Male : No dysuria, No hematuria, No incontinence, No nocturia more than once/ night, No slowing stream, No urinary frequency Neurologic: No balance problems, No memory loss, No numbness/tingling, No paralysis, No vertigo, No weakness Psychiatric: No anhedonism, No anxiety, No depression symptoms, No insomnia, No substance abuse Heme: No abnormal bleeding/bruising, No clotting problems, No night sweats, No swollen lymph nodes Endo: No excessive thirst, No excessive urination, No fatigue Skin: No bleeding, No color change, No itch, No new/changing skin lesions, No rash Objective Vital Signs Date Time Temp Pulse Resp B/P Pulse Ox O2 Delivery O2 Flow Rate FiO2 09/23/16 11:52 159/87 09/23/16 11:19 76 18 94 Room Air 09/23/16 07:30 Room Air 09/23/16 07:15 36.7 78 20 199/77 97 Room Air 09/23/16 00:30 Room Air 09/22/16 23:30 82 18 95 Room Air 09/22/16 22:53 36.8 68 14 161/73 94 Room Air 09/22/16 20:52 79 144/83 09/22/16 19:47 82 16 95 Room Air 09/22/16 15:55 78 16 95 Room Air 09/22/16 15:30 Room Air 09/22/16 15:03 36.7 79 18 136/87 95 Room Air Physical Exam General Appearance: WD/WN, no apparent distress Eyes: normal inspection, PERRL, EOMI, sclerae normal, + pertinent finding ( bilateral conjunctiva injected dry eyes) ENT: normal ENT inspection, hearing grossly normal, pharynx normal Neck: supple, no adenopathy, thyroid normal, no JVD, no carotid bruits, trachea midline Respiratory/Chest: chest non-tender, normal breath sounds, no respiratory distress, no accessory muscle use, + decreased breath sounds Cardiovascular: regular rate, rhythm, no edema, no gallop, no JVD, no murmur Abdomen: normal bowel sounds, non tender, soft, no organomegaly, no pulsatile mass, + pertinent finding (Ch catheter in place with the gross hematuria) Extremities: normal range of motion, non-tender, normal inspection, no pedal edema, no calf tenderness, normal capillary refill, pelvis stable Neurologic/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 Gross hematuria with underlying UTI: Urology on the case stable and improving - Abdominal/pelvic CT reviewed - UA dirty, UCx pending - Consult urology, appreciate recommendations -- Urine cytology -- No need for stent at present -- Hx of bladder cancer- Cysto 1 year ago was normal. Can repeat as outpt -- PSA- 0.143 - IV Rocephin (started on 09/22) - continueantibiotics, per urologist will d/c ch in next day or two as pt confused , he will need cysto as outpt, preliminary urine ng but believe pt chronically infected CAD/Combined diastolic/systolic CHF/HTN/Hyperlipidemia- Continue home ASA considering hematuria Continue Amiodarone, Coreg, Zocor, Lasix, Potassium chloride Try to convincing patient to get the medication, if need be need to transfer to quality assurance monitor final bed Conjunctivitis and dry, is new per niece, will give artificial tear and Cipro CKD stage III- STABLE: COPD: Continue Spiriva, Symbicort, DuoNeb's Hypothyroidism: Continue Synthroid T2DM: Diet controlled Chronic urinary retention: Continue Alfuzosin, Dutasteride GERD: Continue Protonix About medical conditions stable will continue current care DVT prophylaxis: SCDs, avoid chemical anticoagulation considering gross hematuria Call to her niece who is POA, her name is Jayne , cell phone a [phone] home phone is a [phone] She requested okay CPR but DO NOT INTUBATE Continued [facility] stay due to: multiple IV medications needed Discharge planning: home
[2016-09-23] MEDS ORDERED: CIPROFLOXACIN HCL 0.3% OP SOLN 2.5 ML BTL OP ONE (14:00)
[2016-09-23] MEDS: ARTIFICIAL TEARS OP SOLN OP SCH ×4 (21:00→22:50)
[2016-09-23] MEDS: SIMVASTATIN 20 MG TAB PO SCH (22:04)
[2016-09-24] VITALS (8 sets, daily range): BP systolic 150–168; BP diastolic 74–76; PULSE 59–72; TEMP 36.6; O2SAT 9–96
[2016-09-24] MEDS: CEFTRIAXONE SOD INJ 1 GM in DEXTROSE 5% ADD-VANTAGE 50ML 50 ML IV SCH (00:20)
[2016-09-24] MEDS: SODIUM CHLORIDE 0.9% 1000ML 1,000 ML IV SCH ×2 (00:20→13:17)
[2016-09-24] MEDS: ALBUT/IPRATROP 3MG/0.5MG NEB 3 ML VIAL INH SCH ×6 (04:00→22:52)
[2016-09-24] MEDS: LEVOTHYROXINE 75 MCG TAB PO SCH (06:08)
[2016-09-24 06:28] LABS: MEAN CELL VOLUME 97.4 fL (80-100); MEAN CORPUSCULAR HEMOGLOBIN 32.8 pg (25-34); MEAN CORPUSCULAR HGB CONC 33.7 g/dl (32-36); MEAN PLATELET VOLUME 10.7 fL (7.4-10.4); PLATELET COUNT 148 K/uL (130-400); WHITE BLOOD COUNT 6.29 K/uL (4.8-10.8)
[2016-09-24 06:51] LABS: BUN/CREATININE RATIO 21.6 (10-20); CALCIUM 7.9 mg/dl (8.5-10.1); CREATININE 1.2 mg/dl (0.60-1.40); POTASSIUM 3.9 mmol/L (3.5-5.1)
[2016-09-24] MEDS: METOCLOPRAMIDE HCL 10 MG TAB PO SCH ×3 (07:25→17:18)
[2016-09-24] MEDS: PANTOprazole SOD 40 MG TAB PO SCH (07:25)
[2016-09-24] MEDS: ALFUZosin TAB 10 MG TAB PO SCH (07:26)
[2016-09-24] MEDS: CARVEDILOL 3.125 MG TAB PO SCH ×2 (07:26→20:33)
[2016-09-24] MEDS: FUROSEMIDE 40 MG TAB PO SCH (07:26)
[2016-09-24] MEDS: POTASSIUM CHLORIDE 10 MEQ TABCR PO SCH (07:26)
[2016-09-24] MEDS: AMIODARONE 200 MG TAB PO SCH (07:27)
[2016-09-24] MEDS: ARTIFICIAL TEARS OP SOLN OP SCH ×4 (07:27→20:32)
[2016-09-24] MEDS: TIOTROPIUM BROMIDE 5 PUFF/90 MCG INH INH SCH (07:27)
[2016-09-24] MEDS: FLUTICASONE/SALMETEROL 250/50 (ADVAIR) 14 PUFF/1 INHALER INH SCH ×2 (07:27→20:31)
[2016-09-24] MEDS: AVODART~ORDER AWAITING ACTION SCH ×3 (07:27→16:00)
[2016-09-24] MEDS: CIPROFLOXACIN HCL 0.3% OP SOLN 2.5 ML BTL OP SCH (08:11)
--- NOTE | 2016-09-24 12:03 | Progress Note ---
Subjective Date of Service: Sep 24, 2016. Subjective Pt evaluation today including: conversation w/ patient, physical exam, chart review, review of studies Voiding: ch catheter in place urine draining slightly bloody urine pt confused but sleeping alot Objective Vital Signs Date Time Temp Pulse Resp B/P Pulse Ox O2 Delivery O2 Flow Rate FiO2 09/24/16 11:40 70 18 95 Room Air 09/24/16 07:36 Room Air 09/24/16 07:34 72 18 96 Room Air 09/24/16 07:20 36.6 67 18 168/74 95 Room Air 09/24/16 00:25 Room Air 09/23/16 23:46 70 18 97 Room Air 09/23/16 23:05 36.8 73 16 161/70 95 Room Air 09/23/16 22:02 74 134/64 09/23/16 19:52 75 18 96 Room Air 09/23/16 16:10 Room Air 09/23/16 15:40 74 18 95 Room Air 09/23/16 15:00 36.3 74 16 131/74 95 Room Air Laboratory Results Last 24 Hours Test 09/24/16 05:41 White Blood Count 6.29 K/uL Red Blood Count 3.90 M/uL Hemoglobin 12.8 g/dL Hematocrit 38.0 % Mean Corpuscular Volume 97.4 fL Mean Corpuscular Hemoglobin 32.8 pg Mean Corpuscular Hemoglobin Concent 33.7 g/dl RDW Standard Deviation 49.7 fL RDW Coefficient of Variation 13.9 % Platelet Count 148 K/uL Mean Platelet Volume 10.7 fL Sodium Level 144 mmol/L Potassium Level 3.9 mmol/L Chloride Level 111 mmol/L Carbon Dioxide Level 25 mmol/L Anion Gap 8.0 mmol/L Blood Urea Nitrogen 26 mg/dl Creatinine 1.20 mg/dl Est Creatinine Clear Calc Drug Dose 43.1 ml/min Estimated GFR () 63.1 Estimated GFR (Non- 54.4 BUN/Creatinine Ratio 21.6 Random Glucose 102 mg/dl Calcium Level 7.9 mg/dl Assessment and Plan continue antibiotics Pt per chart has a hx of chronic infection and incomplete emptying dating back to 2006 when he had a bx for bladder inflammation to r/o tcc ; Per the chart he refused intervention fot incomplete emptying , Although the culture here of urine negative not clear if he had antibiotic at outlying hospital that compromised culture , Suspect he will nee half-way antibiotic suppression and cysto to r/o cancer Continued [facility] stay due to: multiple IV medications needed Discharge planning: home
--- NOTE | 2016-09-24 16:13 | Progress Note ---
Subjective Date of Service: Sep 24, 2016. 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 Review of Systems Constitutional: + fatigue, No chills, No fever, No problem reported, No sweats , No weakness, No weight loss Eyes: No diplopia, No discharge, No eye pain, No redness, No worsening of vision ENT: No dental problems, No hearing loss, No nasal symptoms, No sore throat, No tinnitus, No trouble swallowing, No unusual epistaxis Respiratory: No cough, No dyspnea at rest, No dyspnea on exertion, No hemoptysis, No shortness of breath, No sputum, No wheezing Cardiac: No PND, No chest pain, No claudication, No edema, No orthopnea, No palpitations Abdomen: No constipation, No diarrhea, No nausea, No pain, No vomiting Musculoskeletal: No calf pain, No joint pain, No muscle pain, No swelling Male : + hematuria (better), No dysuria, No incontinence, No nocturia more than once/night, No slowing stream, No urinary frequency Neurologic: No balance problems, No memory loss, No numbness/tingling, No paralysis, No vertigo, No weakness Psychiatric: No anhedonism, No anxiety, No depression symptoms, No insomnia, No substance abuse Heme: No abnormal bleeding/bruising, No clotting problems, No night sweats, No swollen lymph nodes Endo: No excessive thirst, No excessive urination, No fatigue Skin: No bleeding, No color change, No itch, No new/changing skin lesions, No rash Objective Vital Signs Date Time Temp Pulse Resp B/P Pulse Ox O2 Delivery O2 Flow Rate FiO2 09/24/16 15:58 59 18 96 Room Air 09/24/16 15:28 36.6 61 20 153/76 96 Room Air 09/24/16 15:10 Room Air 09/24/16 11:40 70 18 95 Room Air 09/24/16 07:36 Room Air 09/24/16 07:34 72 18 96 Room Air 09/24/16 07:20 36.6 67 18 168/74 95 Room Air 09/24/16 00:25 Room Air 09/23/16 23:46 70 18 97 Room Air 09/23/16 23:05 36.8 73 16 161/70 95 Room Air 09/23/16 22:02 74 134/64 09/23/16 19:52 75 18 96 Room Air Physical Exam General Appearance: WD/WN, no apparent distress, + thin Eyes: normal inspection, PERRL, EOMI, sclerae normal ENT: normal ENT inspection, hearing grossly normal, pharynx normal Neck: supple, no adenopathy, thyroid normal, no JVD, no carotid bruits, trachea midline Respiratory/Chest: chest non-tender, lungs clear, normal breath sounds, no respiratory distress, no accessory muscle use Cardiovascular: regular rate, rhythm, no edema, no gallop, no JVD, no murmur Abdomen: normal bowel sounds, non tender, soft, no organomegaly, no pulsatile mass, + pertinent finding (Lr in place, hematuria better) Extremities: normal range of motion, non-tender, normal inspection, no pedal edema, no calf tenderness, normal capillary refill, pelvis stable 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, no motor/sensory deficits, alert, normal mood/affect, oriented x 3 Skin: normal color, warm/dry, no rash Lymphatic: no adenopathy Laboratory Results Last 24 Hours Test 09/24/16 05:41 White Blood Count 6.29 K/uL Red Blood Count 3.90 M/uL Hemoglobin 12.8 g/dL Hematocrit 38.0 % Mean Corpuscular Volume 97.4 fL Mean Corpuscular Hemoglobin 32.8 pg Mean Corpuscular Hemoglobin Concent 33.7 g/dl RDW Standard Deviation 49.7 fL RDW Coefficient of Variation 13.9 % Platelet Count 148 K/uL Mean Platelet Volume 10.7 fL Sodium Level 144 mmol/L Potassium Level 3.9 mmol/L Chloride Level 111 mmol/L Carbon Dioxide Level 25 mmol/L Anion Gap 8.0 mmol/L Blood Urea Nitrogen 26 mg/dl Creatinine 1.20 mg/dl Est Creatinine Clear Calc Drug Dose 43.1 ml/min Estimated GFR () 63.1 Estimated GFR (Non- 54.4 BUN/Creatinine Ratio 21.6 Random Glucose 102 mg/dl Calcium Level 7.9 mg/dl Assessment and Plan 86-year-old male transferred from [facility] to [facility] as a direct with complaints of gross hematuria on 09/22/2016 Gross hematuria with underlying UTI: Abdominal/pelvic CT reviewed UA dirty, UCx final shows no growth Hematuria getting better with IV antibiotics - Consult urology, appreciate recommendations -- Urine cytology -- No need for stent at present -- Hx of bladder cancer- Cysto 1 year ago was normal. Can repeat as outpt -- PSA- 0.143 - IV Rocephin (started on 09/22) - continue antibiotics, per urologist possible need Lr catheter for several days, possible need fci antibiotic suppression and cysto to r/o cancer CAD/Combined diastolic/systolic CHF/HTN/Hyperlipidemia- Continue home ASA considering hematuria Continue Amiodarone, Coreg, Zocor, Lasix, Potassium chloride Try to convincing patient to get the medication, if need be need to transfer to junior underwriter bed Conjunctivitis and dry, is new per niece, will give artificial tear and Cipro CKD stage III- STABLE: COPD: Continue Spiriva, Symbicort, DuoNeb's Hypothyroidism: Continue Synthroid T2DM: Diet controlled Chronic urinary retention: Continue Alfuzosin, Dutasteride GERD: Continue Protonix About medical conditions stable will continue current care Conjunctivitis, continue artificial tears and antibiotic eyedrop DVT prophylaxis: SCDs, avoid chemical anticoagulation considering gross hematuria On 09/24/1999 617 Called to her niece who is ANTELMO, her name is Jayne , cell phone a [phone] home phone is a [phone] She requested okay CPR but DO NOT INTUBATE Possible discharge to home with oral antibiotics and Lr catheter in place, and follow-up with urology as outpatient Continued [facility] stay due to: multiple IV medications needed Discharge planning: home
[2016-09-24] MEDS: SIMVASTATIN 20 MG TAB PO SCH (20:33)
[2016-09-25] VITALS (9 sets, daily range): BP systolic 123–202; BP diastolic 56–83; PULSE 56–87; TEMP 36.4–36.6; O2SAT 93–98
[2016-09-25] MEDS: SODIUM CHLORIDE 0.9% 1000ML 1,000 ML IV SCH ×2 (00:17→13:41)
[2016-09-25] MEDS: CEFTRIAXONE SOD INJ 1 GM in DEXTROSE 5% ADD-VANTAGE 50ML 50 ML IV SCH (01:33)
[2016-09-25] MEDS: ALBUT/IPRATROP 3MG/0.5MG NEB 3 ML VIAL INH SCH ×4 (03:30→16:05)
[2016-09-25] MEDS: LEVOTHYROXINE 75 MCG TAB PO SCH ×2 (06:00→06:30)
[2016-09-25 06:11] LABS: HEMATOCRIT 38.8 % (42-52); MEAN CELL VOLUME 99.2 fL (80-100); MEAN CORPUSCULAR HEMOGLOBIN 33.5 pg (25-34); MEAN CORPUSCULAR HGB CONC 33.8 g/dl (32-36); MEAN PLATELET VOLUME 10.4 fL (7.4-10.4); PLATELET COUNT 138 K/uL (130-400); RED BLOOD COUNT 3.91 M/uL (4.7-6.1); WHITE BLOOD COUNT 5.06 K/uL (4.8-10.8)
[2016-09-25 06:31] LABS: BUN/CREATININE RATIO 17.4 (10-20); CALCIUM 7.8 mg/dl (8.5-10.1); CREATININE 1.1 mg/dl (0.60-1.40); POTASSIUM 3.6 mmol/L (3.5-5.1)
[2016-09-25] MEDS: AVODART~ORDER AWAITING ACTION SCH ×2 (08:00)
[2016-09-25] MEDS: METOCLOPRAMIDE HCL 10 MG TAB PO SCH ×2 (08:45→12:10)
[2016-09-25] MEDS: TIOTROPIUM BROMIDE 5 PUFF/90 MCG INH INH SCH (08:46)
[2016-09-25] MEDS: FLUTICASONE/SALMETEROL 250/50 (ADVAIR) 14 PUFF/1 INHALER INH SCH (08:46)
[2016-09-25] MEDS: ARTIFICIAL TEARS OP SOLN OP SCH ×2 (08:48)
[2016-09-25] MEDS: AMIODARONE 200 MG TAB PO SCH (08:48)
[2016-09-25] MEDS: CIPROFLOXACIN HCL 0.3% OP SOLN 2.5 ML BTL OP SCH (08:48)
[2016-09-25] MEDS: CARVEDILOL 3.125 MG TAB PO SCH (08:48)
[2016-09-25] MEDS: ALFUZosin TAB 10 MG TAB PO SCH (08:49)
[2016-09-25] MEDS: FUROSEMIDE 40 MG TAB PO SCH (08:49)
[2016-09-25] MEDS: POTASSIUM CHLORIDE 10 MEQ TABCR PO SCH (08:49)
[2016-09-25] MEDS: PANTOprazole SOD 40 MG TAB PO SCH (08:49)
--- NOTE | 2016-09-25 12:08 | Progress Note ---
Subjective Date of Service: Sep 25, 2016. Subjective Pt evaluation today including: conversation w/ patient, chart review, lab review Voiding: ch catheter in place (patent, draining bains colored urine ) Gross hematuria persists in ch catheter this morning. Pt denies pain. He states he is at [facility], and does know his birthdate today. He does not know what year it is. Review of Systems Constitutional: No chills, No fever Respiratory: No shortness of breath Cardiac: No chest pain Abdomen: No nausea, No pain, No vomiting Male : + hematuria Heme: + abnormal bleeding/bruising Objective Vital Signs Date Time Temp Pulse Resp B/P Pulse Ox O2 Delivery O2 Flow Rate FiO2 09/25/16 11:32 84 18 96 Room Air 09/25/16 09:52 87 93 09/25/16 07:38 Room Air 09/25/16 07:21 75 18 95 Room Air 09/25/16 07:19 36.4 78 18 137/56 95 Room Air 09/25/16 06:10 76 144/57 09/25/16 05:09 66 202/83 09/25/16 00:10 Room Air 09/25/16 00:05 36.6 64 16 176/67 95 Room Air 09/24/16 22:52 62 18 9 Room Air 09/24/16 20:36 63 18 150/76 96 Room Air 09/24/16 19:58 68 18 93 Room Air 09/24/16 15:58 59 18 96 Room Air 09/24/16 15:28 36.6 61 20 153/76 96 Room Air 09/24/16 15:10 Room Air Physical Exam General Appearance: no apparent distress Eyes: normal inspection ENT: hearing grossly normal Neck: no JVD Respiratory/Chest: no respiratory distress, no accessory muscle use Cardiovascular: no JVD Extremities: normal inspection Neurologic/Psychiatric: alert, normal mood/affect Skin: normal color Laboratory Results Last 24 Hours Test 09/25/16 05:53 White Blood Count 5.06 K/uL Red Blood Count 3.91 M/uL Hemoglobin 13.1 g/dL Hematocrit 38.8 % Mean Corpuscular Volume 99.2 fL Mean Corpuscular Hemoglobin 33.5 pg Mean Corpuscular Hemoglobin Concent 33.8 g/dl RDW Standard Deviation 50.1 fL RDW Coefficient of Variation 13.9 % Platelet Count 138 K/uL Mean Platelet Volume 10.4 fL Sodium Level 146 mmol/L Potassium Level 3.6 mmol/L Chloride Level 113 mmol/L Carbon Dioxide Level 24 mmol/L Anion Gap 9.0 mmol/L Blood Urea Nitrogen 19 mg/dl Creatinine 1.10 mg/dl Est Creatinine Clear Calc Drug Dose 47.0 ml/min Estimated GFR () 70.1 Estimated GFR (Non- 60.5 BUN/Creatinine Ratio 17.4 Random Glucose 91 mg/dl Calcium Level 7.8 mg/dl Assessment and Plan A/P: Incomplete bladder emptying, gross hematuria ? UTI Could also suspect prostatitis. Recommend treatment with 1 month of trimethoprim 100mg BID per Dr. Martin. Will leave ch catheter for 7-10 days. Attempt TOV then. Will also plan for outpatient cysto for further evaluation of gross hematuria. Urine cytology is pending. Pt OK for d/c home from [facility] when OK with primary service. Will arrange for outpatient f/u. Continued [facility] stay due to: multiple IV medications needed Discharge planning: home
--- NOTE | 2016-09-25 14:24 | Progress Note ---
Subjective Date of Service: Sep 25, 2016. Subjective Pt evaluation today including: conversation w/ patient, conversation w/ family Pt is tired. He has a low appetite. Feels his urine is less red than prior. Denies pain. Pt denies fever, SOB, chest pain, abd pain, n/v/c/d, LE pain or swelling. ROS as noted above, otherwise neg. Spoke with niece who states that pt was having some ambulation issues [employer] and she would be in agreement with rehab. Objective Vital Signs Date Time Temp Pulse Resp B/P Pulse Ox O2 Delivery O2 Flow Rate FiO2 09/25/16 11:32 84 18 96 Room Air 09/25/16 09:52 87 93 09/25/16 07:38 Room Air 09/25/16 07:21 75 18 95 Room Air 09/25/16 07:19 36.4 78 18 137/56 95 Room Air 09/25/16 06:10 76 144/57 09/25/16 05:09 66 202/83 09/25/16 00:10 Room Air 09/25/16 00:05 36.6 64 16 176/67 95 Room Air 09/24/16 22:52 62 18 9 Room Air 09/24/16 20:36 63 18 150/76 96 Room Air 09/24/16 19:58 68 18 93 Room Air 09/24/16 15:58 59 18 96 Room Air 09/24/16 15:28 36.6 61 20 153/76 96 Room Air 09/24/16 15:10 Room Air Physical Exam General Appearance: WD/WN, no apparent distress Respiratory/Chest: normal breath sounds, no respiratory distress Cardiovascular: regular rate, rhythm, no edema Abdomen: non tender, soft Extremities: non-tender, no pedal edema Neurologic/Psychiatric: alert, + pertinent finding (depressed mood) Skin: normal color, warm/dry Laboratory Results Last 24 Hours Test 09/25/16 05:53 White Blood Count 5.06 K/uL Red Blood Count 3.91 M/uL Hemoglobin 13.1 g/dL Hematocrit 38.8 % Mean Corpuscular Volume 99.2 fL Mean Corpuscular Hemoglobin 33.5 pg Mean Corpuscular Hemoglobin Concent 33.8 g/dl RDW Standard Deviation 50.1 fL RDW Coefficient of Variation 13.9 % Platelet Count 138 K/uL Mean Platelet Volume 10.4 fL Sodium Level 146 mmol/L Potassium Level 3.6 mmol/L Chloride Level 113 mmol/L Carbon Dioxide Level 24 mmol/L Anion Gap 9.0 mmol/L Blood Urea Nitrogen 19 mg/dl Creatinine 1.10 mg/dl Est Creatinine Clear Calc Drug Dose 47.0 ml/min Estimated GFR () 70.1 Estimated GFR (Non- 60.5 BUN/Creatinine Ratio 17.4 Random Glucose 91 mg/dl Calcium Level 7.8 mg/dl Assessment and Plan 86 y/o Mwho was transferred from [facility] with gross hematuria on 09/22/2016 Gross hematuria with underlying UTI: Abdominal/pelvic CT reviewed UA dirty, UCx final shows no growth Hematuria getting better with IV antibiotics - Consult urology, appreciate recommendations -- Urine cytology -- No need for stent at present -- Hx of bladder cancer- Cysto 1 year ago was normal. Can repeat as outpt -- PSA- 0.143 - IV Rocephin (started on 09/22) - continue antibiotics, per urologist possible need Lr catheter for several days, possible need technician terminal and repeater antibiotic suppression and cysto to r/o cancer CAD/Combined diastolic/systolic CHF/HTN/Hyperlipidemia- Continue home ASA considering hematuria Continue Amiodarone, Coreg, Zocor, Lasix, Potassium chloride Conjunctivitis and dry, is new per monserrat, will give artificial tear and Cipro CKD stage III- STABLE: COPD: Continue Spiriva, Symbicort, DuoNeb's Hypothyroidism: Continue Synthroid T2DM: Diet controlled Chronic urinary retention: Continue Alfuzosin, Dutasteride GERD: Continue Protonix Conjunctivitis, continue artificial tears and antibiotic eyedrop DVT prophylaxis: SCDs, avoid chemical anticoagulation considering gross hematuria Discussed with Jayne german. PT/OT recs for rehab vs SNF. Discussed with CM and they will touch base with family regarding options. Continued [facility] stay due to: multiple IV medications needed Discharge planning: home
[2016-09-25] MEDS ORDERED: ADVIN25050 INH (16:29)
[2016-09-25] MEDS ORDERED: TRIM100T PO (16:29)
[2016-09-25] MEDS ORDERED: Artificial Tears OP (16:29)
[2016-09-25] MEDS ORDERED: CLXOPS3 OP (16:29)
--- NOTE | 2016-09-25 16:31 | Discharge Instructions ---
Discharge Instructions Date of Service Sep 25, 2016. Admission Reason for Admission: Gross Hematuria Discharge Discharge Diagnosis / Problem: Gross hematuria, UTI Discharge Goals Goal(s): Decrease discomfort, Improve function, Increase independence Activity Recommendations Activity Level: Assistance Required Therapies: Physical Therapy, Occupational Therapy . Additional Information Patient informed of condition: Yes Advance Directives: Yes DNR: No Level of Care: Acute Rehab Communicable Disease: No Prognosis: Improving Lr Catheter: Yes Instructions / Follow-Up Instructions / Follow-Up Lr to remain in place for 7-10 days Will need f/u with urology (Dr. Martin) in 7 days for cystoscopy Should be seen by facility PCP in 1-2 days Call 911 and go to the Emergency Room if: * You have tightness or pain in your chest that does not go away with rest or Nitroglycerin * You are very short of breath even with rest Call your doctor if any of the following symptoms or problems start or get worse: * Shortness of breath or difficulty breathing * Wake up at night short of breath * Chest pain * Cough * Swelling of your hands, fee, or legs * More fatigued or tired with your normal activity * Palpitations - sudden fast heart beats WEIGHT * Weigh yourself every morning after using the bathroom. * Use the same scale. * Wear the same amount of clothing. * Write your weight down on your chart. * Call your doctor if you gain more than 2-3 pounds in 1-2 days. MEDICATIONS * Use this discharge instruction sheet for instructions. * Take your medications at the time your doctor ordered. * Do not skip a dose of your medicines. * If you miss a dose of medicine, take as soon as possible, but DO NOT DOUBLE A DOSE. * Read your medicine information when you get home. * Know all of the side effects of your medicine. * Call your doctor's office if you have any side effects. * Be sure all of your doctors know what medicine and herbs you take (including cold, flu, and herbal medicine). * Pain Medicine: If you do not get relief from your pain, please call your doctor for help. Take the following with you to your follow-up doctor appointments: * Weight Chart * Medication List * List of questions Do not drink excessive alcohol, beer or wine. Current Hospital Diet Patient's current hospital diet: AHA Diet (Heart Healthy), Diabetes Type 2 Diet Discharge Diet Recommended Diet: AHA Diet (Heart Healthy), Diabetes Type 2 Diet Pending Studies Studies pending at discharge: no Medical Emergencies . Who to Call and When: Medical Emergencies: If at any time you feel your situation is an emergency, please call 911 immediately. . Non-Emergent Contact Non-Emergency issues call your: Primary Care Provider . . "Provider Documentation" section prepared by Sangeetha Win. Core Measure Problem Core Measures: None
--- NOTE | 2016-09-25 16:37 | Discharge Summary ---
Discharge Summary Date of Service Sep 25, 2016. 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 Martin Medication Reconciliation New Medications: Trimethoprim (Proloprim) 100 Mg Tab 100 MG PO BID for 30 Days, #60 TAB Ciprofloxacin HCl (Ciprofloxacin HCl) 37 Drops/2.5 Ml Soln 2 DROPS OP DAILY for 14 Days Fluticasone Prop/Salmeterol (Advair Diskus 250-50 Mcg/Dose) 14 Puff/1 Inhaler Aerp 1 PUFF INH BID for 30 Days [Artificial Tears] () 225 DROPS/15 ML SOLN 2 DROPS OP BID for 30 Days Continued Medications: Alfuzosin Hcl (Alfuzosin Hcl Er) 10 Mg Tab 1 TAB PO DAILY for 30 Days, #30 TAB 11 Refills Amiodarone Hcl (Cordarone) 200 Mg Tab 1 TAB PO DAILY for 90 Days, #90 TAB 1 Refill Aspirin (Aspirin Ec) 81 Mg Tab 81 MG PO DAILY Budesonide/Formoterol Fumarate (Symbicort 160-4.5 Mcg/Act) 60 Puffs/Inhaler Aero 2 PUFF INH BID Carvedilol (Coreg) 3.125 Mg Tab 1 TAB PO BID for 30 Days, #60 TAB 3 Refills Dutasteride (Avodart) 0.5 Mg Cap 1 CAP PO DAILY for 30 Days, #30 CAP 5 Refills Furosemide (Lasix) 40 Mg Tab 40 MG PO DAILY, TAB Ipratropium-Albuterol (Duoneb) 3 Ml Nebu 1 TREATMENT INH Q4H, INHA Levothyroxine Sodium (Synthroid) 75 Mcg Tab 1 TAB PO DAILY for 30 Days, #30 TAB 5 Refills Metoclopramide (Reglan) 10 Mg Tab 5 MG PO AC, TAB Nitroglycerin (Nitrostat) 0.4 Mg Tab 1 TAB SL UD, #100 TAB 3 Refills Pantoprazole (Protonix) 40 Mg Tab 40 MG PO DAILY, #30 TAB Potassium Chloride (Micro-K Ext Rel) 10 Meq Capcr 10 MEQ PO DAILY, CAP Psyllium (Metamucil) 0.52 Gm Cap 1 DOSE PO DAILY PRN for Constipation Simvastatin (Zocor) 20 Mg Tab 1 TAB PO HS for 30 Days, #30 TAB 5 Refills Tiotropium [place] (Spiriva Handihaler) 30 Puff/540 Mcg Aerp 1 CAP INH DAILY for 30 Days, #30 CAP 3 Refills Discharge Exam Pt is tired. He has a low appetite. Feels his urine is less red than prior. Denies pain. Pt denies fever, SOB, chest pain, abd pain, n/v/c/d, LE pain or swelling. ROS as noted above, otherwise neg. Spoke with niece who states that pt was having some ambulation issues [employer] and she would be in agreement with rehab. Physical Exam: General Appearance: WD/WN, no apparent distress Eyes: + pertinent finding (red rimmed and irritated) Respiratory/Chest: normal breath sounds, no respiratory distress Cardiovascular: regular rate, rhythm, no edema Abdomen / GI: non tender, soft Extremities: no calf tenderness, no pedal edema Neurologic/Psychiatric: alert, + pertinent finding (answers all questions appropriately, following basic commands) Skin: normal color, warm/dry Hospital Course 86 y/o M who was transferred from [facility] with gross hematuria on 09/22/2016 Gross hematuria with underlying UTI: Abdominal/pelvic CT reviewed UA dirty, UCx final shows no growth Hematuria getting better with IV antibiotics - Consult urology, appreciate recommendations -- Urine cytology -- No need for stent at present -- Hx of bladder cancer- Cysto 1 year ago was normal. Can repeat as outpt -- PSA- 0.143 - IV Rocephin (started on 09/22) and will transition to bactrim for 30 days per urology -d/c with Lr catheter for 7-10 days, will need cysto to r/o cancer CAD/Combined diastolic/systolic CHF/HTN/Hyperlipidemia- Continue home ASA considering hematuria Continue Amiodarone, Coreg, Zocor, Lasix, Potassium chloride Conjunctivitis and dry, is new per niece, will give artificial tears and Cipro drops CKD stage III- STABLE: COPD: Continue Spiriva, Symbicort, DuoNeb's Hypothyroidism: Continue Synthroid T2DM: Diet controlled Chronic urinary retention: Continue Alfuzosin, Dutasteride GERD: Continue Protonix Conjunctivitis, continue artificial tears and antibiotic eyedrops Total Time Spent: Greater than 30 minutes This includes examination of the patient, discharge planning, medication reconciliation, and communication with other providers. Discharge Instructions Please refer to the electronic Patient Visit Report (Discharge Instructions) for additional information. Follow-Up Lr to remain in place for 7-10 days Will need f/u with urology (Dr. Martin) in 7 days Should be seen by facility PCP in 1-2 days
== END 2016-09-25 16:35 | DRG 690 ==
LOC: C.MSN 21:44
PROVIDERS: ADMIT Hospitalist; ATTEND Family Medicine
DX: N39.0 Urinary tract infection, site not specified (principal); I13.0 Hypertensive heart and chronic kidney disease with heart failure and stage 1 through stage 4 chronic kidney disease, or unspecified chronic kidney disease; I50.42 Chronic combined systolic (congestive) and diastolic (congestive) heart failure; I25.10 Atherosclerotic heart disease of native coronary artery without angina pectoris; N18.3 Chronic kidney disease, stage 3 (moderate); E78.5 Hyperlipidemia, unspecified; I71.4 Abdominal aortic aneurysm, without rupture; R32 Unspecified urinary incontinence; K21.9 Gastro-esophageal reflux disease without esophagitis; J44.9 Chronic obstructive pulmonary disease, unspecified; E03.9 Hypothyroidism, unspecified; H10.9 Unspecified conjunctivitis; N40.1 Benign prostatic hyperplasia with lower urinary tract symptoms; N13.4 Hydroureter; R33.8 Other retention of urine; E11.22 Type 2 diabetes mellitus with diabetic chronic kidney disease; R41.0 Disorientation, unspecified; R31.0 Gross hematuria; N41.9 Inflammatory disease of prostate, unspecified; K80.20 Calculus of gallbladder without cholecystitis without obstruction; Z85.51 Personal history of malignant neoplasm of bladder; Z87.891 Personal history of nicotine dependence; Z79.82 Long term (current) use of aspirin; Z79.51 Long term (current) use of inhaled steroids; Z79.899 Other long term (current) drug therapy